=== PATIENT | male | born 1975 | race Caucasian/White ===

== ENCOUNTER 2022-06-12 20:32 | Emergency (ER) | payer OTHER, SELFPAY ==
[2022-06-12 20:34] VITALS: BP 136/80; PULSE 65; RESP 16; TEMP 36.6; O2SAT 98
--- NOTE | 2022-06-12 22:29 | ED.SKABFB ---
HPI - Skin/Abscess/Foreign Bdy General Chief complaint: Skin/Abscess/Foreign Body Stated complaint: splinter Time Seen by Provider: 06/12/22 20:45 Source: patient Mode of arrival: ambulatory Limitations: no limitations History of Present Illness HPI narrative: Patient is a 47 y/o male who presents to the ED with c/o a splinter to his R hand. Patient reports he was working in his attic and was holding onto a styleted when his hand slipped and he sustained a splinter through the lateral edge of his right hand, a few centimeters below the right fifth MCP joint. Unable to get it out at home, which prompted his presentation. No bleeding or drainage. No fevers. Tetanus status unknown. Related Data Allergies Allergy/AdvReac Type Severity Reaction Status Date / Time shellfish derived Allergy Unknown Other Verified 06/12/22 20:32 Review of Systems Review of Systems: CONSTITUTIONAL: Denies fever, chills, or sweats. SKIN: See HPI. MUSCULOSKELETAL: Denies pain. NEUROLOGIC: Denies tingling, numbness, or weakness. All systems reviewed & are unremarkable except as noted in HPI and below PMFSH Family History Family History (Updated 07/17/17 @ 08:43 by DOCTOR UNKNOWN) Father Diabetes mellitus Patient's father is in good health Mother Patient's mother is in good health Family history of malignant neoplasm of breast in first degree relative Sibling Family history of Hodgkin's lymphoma Social History Social History Smoking status: Never smoker Second hand tobacco smoke exposure: Yes Alcohol intake: never Exam Narrative: GENERAL: Well appearing, well-nourished, non-toxic, in no acute distress. HEAD: Normocephalic, atraumatic. NECK: Supple. No adenopathy, no masses. RESPIRATORY: Airway patent, respirations nonlabored. CARDIOVASCULAR: Regular rate and rhythm without murmurs, rubs, or gallops. Radial pulses 2+ and equal bilaterally. MUSCULOSKELETAL: Moves all extremities. Strength/ROM intact. Approx 1 cm superficial splinter to ulnar lateral edge of R hand, in region of distal 5th metacarpal. Splinter inserted laterally through skin, entry and exit points visible, middle of splinter just barely under skin. SKIN: Warm, dry, normal color. No rashes. NEURO: A&O X3. Speech clear. Cranial nerves II-XII grossly intact. Steady gait. No ataxic movements. PSYCHIATRIC: Appropriate mood and affect. Normal interaction. Course Vital Signs Vital signs: Vital Signs Temperature 97.9 F 06/12/22 20:34 Pulse Rate 65 06/12/22 20:34 Respiratory Rate 16 06/12/22 20:34 Blood Pressure 136/80 06/12/22 20:34 Pulse Oximetry 98 06/12/22 20:34 Oxygen Delivery Room Air 06/12/22 20:34 Temperature 97.9 F 06/12/22 20:34 Pulse Rate 65 06/12/22 20:34 Respiratory Rate 16 06/12/22 20:34 Blood Pressure 136/80 06/12/22 20:34 Pulse Oximetry 98 06/12/22 20:34 Oxygen Delivery Room Air 06/12/22 20:34 Procedures Foreign Body Removal Foreign Body #1: Foreign Body Removal Date: 06/12/22 Foreign Body Removal Time: 23:15 Time Out Performed: yes Site: right and hand Description of foreign body: other (Splinter) Sedation/Analgesia: none Technique: removal with forceps Confirmed by:: direct visualization Complications: none Post-procedure exam: awake, alert, normal BP, normal HR and normal O2 sat Neurovascular: normal distal pulse, normal capillary fill, distal light touch sensation intact, distal motor function normal, no signs of compartment syndrome and no change from pre-procedure Foreign Body Removal Narrative: Splinter removal MDM - Skin/Abscess/Foreign Bdy MDM Narrative Medical decision making narrative: Superficial splinter to lateral surface of right hand. Removed using needle drivers without complications. Tetanus updated. Patient given wound care instructi
[2022-06-12] MEDS: TETANUS,DIPHTHERIA,AC PERTUSSIS ADULT (0.5 ML) BOOSTRIX IM (22:36)
== END 2022-06-12 23:23 | disposition home or self-care (01) ==
PROVIDERS: Emergency Provider Physician Assistant
DX: S60.551A Superficial foreign body of right hand, initial encounter (principal); Z23 Encounter for immunization; W45.8XXA Other foreign body or object entering through skin, initial encounter
CPT/HCPCS: 90471; 90715; 99282